=== PATIENT | female | born 1990 | race Hispanic/Latino ===

== ENCOUNTER 2018-03-31 14:13 | Observation (INO) | payer OTHER ==
--- NOTE | 2018-03-31 14:46 | ED PDOC ---
Arrival/HPI - General Chief Complaint: Seizure Time Seen by Provider: 03/31/18 14:15 Historian: Patient - History of Present Illness Narrative History of Present Illness (Text): 03/31/18 14:37 A 28 year old female presents to the emergency department for further evaluation s/p generalized tonic clonic seizure from this morning. Patient reports she was seen 4 days ago in [facility] for a generalized tonic clonic seziure with a full workup that was all negative and a follow up appointment with Dr. Leon however patient had a second generalized tonic clonic seziure lasting 1 minute this morning. Patient states Dr. Leon sent her to the emergency room to be admitted. Patient reports she was not incontinent, was postictal for a few minutes and bit the right side of her tongue, Patient states she is not a smoker or a drinker. Patient has no history of seizures and no family history of seizures. Patient denies any fever, chills, shortness of breath, chest pain, diarrhea, nausea, vomiting, urinary symptoms, back pain, neck pain, headache, dizziness, or any other complaints. Neuro: Dr. Leon Time/Duration: 4-6 hours (earlier today) Symptom Onset: Sudden Symptom Course: Improving Activities at Onset: Light Context: Home Associated Symptoms (Text): 03/31/18 14:52 Second generalized tonic-clonic seizure this morning within the last week. Seen by the neurologist and sent to the emergency department for admission for completion of her workup. She was not started on any anti-seizure medication after her first episode. She was seen at another hospital and had a negative workup including CT scan. There was no injury or trauma. No incontinence. No seizure history. No family history of seizures. Past Medical History - Provider Review Nursing Documentation Reviewed: Yes - Psychiatric Hx Substance Use: No - Anesthesia Hx Anesthesia: No Hx Anesthesia Reactions: No Hx Malignant Hyperthermia: No Family/Social History - Physician Review Nursing Documentation Reviewed: Yes Family/Social History: Unknown Family HX Smoking Status: Never Smoked Hx Alcohol Use: Yes Frequency of alcohol use: Socially Hx Substance Use: No Allergies/Home Meds Allergies/Adverse Reactions: Allergies No Known Allergies Allergy (Verified 03/31/18 14:27) Review of Systems - Physician Review All systems were reviewed & negative as marked: Yes - Review of Systems Constitutional: absent: Fatigue, Fevers, Night Sweats Respiratory: absent: SOB Cardiovascular: absent: Chest Pain Gastrointestinal: absent: Abdominal Pain, Diarrhea, Nausea, Vomiting Genitourinary Female: absent: Urine Output Changes Musculoskeletal: absent: Back Pain, Neck Pain Neurological: Seizure (+generalized tonic clonic seziure this morning). absent: Headache, Dizziness, Focal Weakness, Gait Changes, Speech Changes, Facial Droop, Disequilibrium Physical Exam Temperature: Afebrile Blood Pressure: Normal Pulse: Regular Respiratory Rate: Normal Appearance: Positive for: Well-Appearing, Non-Toxic, Comfortable Pain Distress: None Mental Status: Positive for: Alert and Oriented X 3 - Systems Exam Head: Present: Atraumatic, Normocephalic Pupils: Present: PERRL Extroacular Muscles: Present: EOMI Conjunctiva: Present: Normal Ears: Present: NORMAL TM, Normal Canal. No: Erythema, TM Bulging Mouth: Present: Moist Mucous Membranes Pharnyx: No: ERYTHEMA, EXUDATE, TONSILS ENLARGED Neck: Present: Normal Range of Motion. No: Meningeal Signs, MIDLINE TENDERNESS, Paraspinal Tenderness Respiratory/Chest: Present: Clear to Auscultation, Good Air Exchange. No: Respiratory Distress, Accessory Muscle Use Cardiovascular: Present: Regular Rate and Rhythm, Normal S1, S2. No: Murmurs Abdomen: No: Tenderness, Distention, Peritoneal Signs Back: Present: Normal Inspection Upper Extremity: Present: Normal Inspection. No: Cyanosis, Edema Lower Extremity: Present: Normal Inspection. No: Edema Neurological: Present: GCS=15, CN II-XII Intact, Speech Normal, Motor Func Grossly Intact, Normal Sensory Function, Normal Cerebellar Funct, Gait Normal, Memory Normal Skin: Present: Warm, Dry, Normal Color, Abrasion (+small abrasion to the right side). No: Rashes Psychiatric: Present: Alert, Oriented x 3, Normal Insight, Normal Concentration Medical Decision Making ED Course and Treatment: 03/31/18 14:40 Impression: 28 year old female presenting to the emergency department for further evaluation s/p seizure. Plan: -- EKG -- Labs -- Consult with Dr. Leon -- Consult with Dr. Gruber -- CBC -- Urinalysis -- Reassess and disposition Progress Notes: 03/31/18 14:54 EKG shows normal sinus rhythm rate approximately [address] or T-wave changes. Disposition/Present on Arrival - Present on Arrival Any Indicators Present on Arrival: No History of DVT/PE: No History of Uncontrolled Diabetes: No Urinary Catheter: No History of Decub. Ulcer: No History Surgical Site Infection Following: None - Disposition Have Diagnosis and Disposition been Completed?: Yes Diagnosis: Seizure Disposition: HOSPITALIZED Disposition Time: 15:57 Patient Plan: Observation Patient Problems: Current Active Problems Problem Status Onset Seizure Acute Condition: GOOD
[2018-03-31 15:03] LABS: URINE BILIRUBIN NEGATIVE (NEGATIVE); URINE BLOOD NEGATIVE (NEGATIVE); URINE GLUCOSE (UA) NEGATIVE (NEGATIVE); URINE LEUKOCYTE ESTERASE TRACE Leu/uL (NEGATIVE); URINE PROTEIN NEGATIVE mg/dL (<30 mg/dL); URINE UROBILINOGEN 0.2 E.U./dL (<1 E.U./dL)
[2018-03-31 15:07] LABS: URINE APPEARANCE CLEAR (CLEAR); URINE COLOR YELLOW (YELLOW)
[2018-03-31 15:19] LABS: URINE BACTERIA FEW (NEG); URINE RBC NEGATIVE /hpf (0-2)
[2018-03-31 15:46] LABS: BASO # 0.02 K/mm3 (0.0-2.0); BASO % 0.3 % (0.0-3.0); EOS # 0.1 (0.0-0.7); EOS % 0.8 % (1.5-5.0); GRAN # 5.5 (1.4-6.5); GRAN % 68.6 % (50.0-68.0); HEMOGLOBIN 13.4 g/dL (12.0-16.0); LYMPH # 2.1 (1.2-3.4); LYMPH % 25.9 % (22.0-35.0); MEAN CELL VOLUME 85.3 fl (80.0-105.0); MEAN CORPUSCULAR HEMOGLOBIN 28.1 pg (25.0-35.0); MEAN CORPUSCULAR HGB CONC 32.9 g/dl (31.0-37.0); MONO # 0.4 (0.1-0.6); MONO % 4.4 % (1.0-6.0); RBC 4.77 10^6/uL (3.5-6.1); RED CELL DISTRIBUTION WIDTH 12.8 % (11.5-14.5)
[2018-03-31 16:35] LABS: ALB/GLOB RATIO 1.2 (1.1-1.8); ALBUMIN 4.4 g/dL (3.0-4.8); ALT/SGPT 50 U/L (7-56); AST/SGOT 43 U/L (14-36); BLOOD UREA NITROGEN 12 mg/dL (7-21); CALCIUM 9.5 mg/dL (8.4-10.5); GFR NON-AFRICAN AMERICAN > 60
[2018-03-31 18:04] VITALS: BMI 29.2
--- NOTE | 2018-04-01 08:22 | CARD ---
APPROVED REPORT Date of service: 03/31/2018 EKG Measurement Heart [id number] <Conclusion> Normal sinus rhythm Normal ECG
--- NOTE | 2018-04-01 13:19 | CP.PCM.CON ---
History of Present Illness - History of Present Illness History of Present Illness: Neurology Consultation Note: Mrs. Mason is a 28-year-old woman, who is a patient of Dr. Leon, and was referred to me by Dr. Mai, after having two reported episodes of seizures. She was sent to the hospital for continuous EEG monitoring and work-up for epilepsy. Since she has been in the hospital, she has not had any seizures. She is currently not on any AEDs. Review of Systems - Constitutional Constitutional: absent: As Per HPI, Anorexia, Chills, Daytime Sleepiness, Excessive Sweating, Fatigue, Fever, Frequent Falls, Headache, Increased Appetite, Lethargy, Malaise, Night Sweats, Snoring, Sleep Apnea, Weight Gain, Weight Loss, Weakness, Other - EENT Eyes: absent: As Per HPI, Blind Spots, Blurred Vision, Change in Vision, Decreased Night Vision, Diplopia, Discharge, Dry Eye, Exophthalmos, Floaters, Irritation, Itchy Eyes, Loss of Peripheral Vision, Pain, Photophobia, Requires Corrective Lenses, Sees Flashes, Spots in Vision, Tunnel Vision, Other Visual Disturbances, Loss of Vision, Other Ears: absent: As Per HPI, Decreased Hearing, Ear Discharge, Ear Pain, Tinnitus, Abnormal Hearing, Disequilibrium, Dizziness, Other Nose/Mouth/Throat: absent: As Per HPI, Epistaxis, Nasal Congestion, Nasal Discharge, Nasal Obstruction, Nasal Trauma, Nose Pain, Post Nasal Drip, Sinus Pain, Sinus Pressure, Bleeding Gums, Change in Voice, Dental Pain, Dry Mouth, Dysphagia, Halitosis, Hoarsness, Lip Swelling, Mouth Lesions, Mouth Pain, Odynophagia, Sore Throat, Throat Swelling, Tongue Swelling, Facial Pain, Neck Pain, Neck Mass, Other - Breasts Breasts: absent: As Per HPI, Change in Shape, Mass, Pain, Nipple Discharge, Nip ple Inversion, Skin Changes, Swelling, Other - Cardiovascular Cardiovascular: absent: As Per HPI, Acrocyanosis, Chest Pain, Chest Pain at Rest, Chest Pain with Activity, Claudication, Diaphoresis, Dyspnea, Dyspnea on Exertion, Edema, Irregular Heart Rhythm, Pain Radiating to Arm/Neck/Jaw, Leg Edema, Leg Ulcers, Lightheadedness, Orthopnea, Palpitations, Paroxysmal Nocturnal Dyspnea, Pedal Edema, Radiating Pain, Rapid Heart Rate, Slow Heart Rate, Syncope, Other - Respiratory Respiratory: absent: As Per HPI, Cough, Dyspnea, Hemoptysis, Dyspnea on Exertion, Wheezing, Snoring, Stridor, Pain on Inspiration, Chest Congestion, Excessive Mucous Production, Change in Mucous Color, Pain with Coughing, Other - Gastrointestinal Gastrointestinal: absent: As Per HPI, Abdominal Pain, Belching, Bloating, Change in Bowel Habits, Change in Stool Character, Coffee Ground Emesis, Constipation, Cramping, Diarrhea, Dyspepsia, Dysphagia, Early Satiety, Excessive Flatus, Fecal Incontinence, Heartburn, Hematemesis, Hematochezia, Loose Stools, Melena, Nausea, Odynophagia, Temesmus, Vomiting, Other - Genitourinary Genitourinary: absent: As Per HPI, Change in Urinary Stream, Difficulty Urinating, Dysuria, Flank Pain, Hematuria, Pyuria, Nocturia, Urinary Incontinence, Urinary Frequency, Urinary Hesitance, Urinary Urgency, Voiding Freq/Small Amts, Freq UTI, Hx Renal/Bladder Calculi, Hx /Renal Surgery, Bladder Distension, Other - Musculoskeletal Musculoskeletal: absent: As Per HPI, Abnormal Gait, Arthralgias, Atrophy, Back Pain, Deformity, Joint Swelling, Limited Range of Motion, Loss of Height, Muscle Cramps, Muscle Weakness, Myalgias, Neck Pain, Numbness, Radiating Pain into Limb, Stiffness, Tingling, Other - Integumentary Integumentary: absent: As Per HPI, Acne, Alopecia, Bleeding Lesions, Change in Hair, Change in Nails, Change in Pigmentation, Changing Lesions, Dry Skin, Erythema, Furuncle, Hirsutism, Lesions, New Lesions, Non-Healing Lesions, Photosensitivity, Pruritus, Rash, Skin Pain, Skin Ulcer, Sores, Striae, Swelling, Unusual Bruising, Wounds, Jaundice, Other - Neurological Neurological: As Per HPI - Psychiatric Psychiatric: absent: As Per HPI, Abnormal Sleep Pattern, Anhedonia, Anxiety, Auditory Hallucinations, Behavioral Changes, Change in Appetite, Change in Libid o, Confusion, Depression, Difficulty Concentrating, Hallucinations, Homicidal Ideation, Hopelessness, Irritability, Memory Loss, Mood Swings, Panic Attacks, Paranoia, Suicidal Ideation, Visual Hallucinations, Tactile Hallucinations, Other - Endocrine Endocrine: absent: As Per HPI, Change in Body Appearance, Change in Libido, Cold Intolorance, Deepening of Voice, Excessive Sweating, Fatigue, Flushing, Heat Intolorance, Increase in Ring/Shoe/Hat Size, Palpitations, Polydipsia, Polyphagia, Polyuria, Other - Hematologic/Lymphatic Hematologic: absent: As Per HPI, Easy Bleeding, Easy Bruising, Lymphadenopathy, Other Past Patient History - Past Social History Smoking Status: Never Smoked - CARDIAC Hx Cardiac Disorders: No - PULMONARY Hx Respiratory Disorders: No - NEUROLOGICAL Hx Seizures: Yes (FOUR DAYS AGO & TODAY) - HEENT Hx HEENT Problems: No - RENAL Hx Chronic Kidney Disease: No - ENDOCRINE/METABOLIC Hx Endocrine Disorders: No - HEMATOLOGICAL/ONCOLOGICAL Hx Blood Disorders: No - INTEGUMENTARY Hx Dermatological Problems: No - MUSCULOSKELETAL/RHEUMATOLOGICAL Hx Musculoskeletal Disorders: No - GASTROINTESTINAL Hx Gastrointestinal Disorders: No - GENITOURINARY/GYNECOLOGICAL Hx Genitourinary Disorders: No - PSYCHIATRIC Hx Substance Use: No - SURGICAL HISTORY Hx Surgeries: No - ANESTHESIA Hx Anesthesia: No Hx Anesthesia Reactions: No Hx Malignant Hyperthermia: No Meds Allergies/Adverse Reactions: Allergies Allergy/AdvReac Type Severity Reaction Status Date / Time No Known Allergies Allergy Verified 03/31/18 14:27 Physical Exam - Constitutional Appears: Well - Head Exam Head Exam: ATRAUMATIC, NORMAL INSPECTION, NORMOCEPHALIC - Eye Exam Eye Exam: EOMI, Normal appearance, PERRL - ENT Exam ENT Exam: Mucous Membranes Moist, Normal Exam - Neck Exam Neck exam: Positive for: Normal Inspection - Respiratory Exam Respiratory Exam: Clear to Auscultation Bilateral, NORMAL BREATHING PATTERN - Cardiovascular Exam Cardiovascular Exam: REGULAR RHYTHM, +S1, +S2 - GI/Abdominal Exam GI & Abdominal Exam: Normal Bowel Sounds, Soft. absent: Tenderness - Rectal Exam Rectal Exam: Deferred - Neurological Exam Neurological exam: Alert, CN II-XII Intact, Normal Gait, Oriented x3, Reflexes Normal - Psychiatric Exam Psychiatric exam: Normal Affect, Normal Mood - Skin Skin Exam: Dry, Intact, Normal Color, Warm Results - Vital Signs Recent Vital Signs: Last Vital Signs Temp 98 F 04/01/18 08:06 Pulse 80 04/01/18 08:06 Resp 18 04/01/18 08:06 BP 113/75 04/01/18 08:06 Pulse Ox 98 04/01/18 08:06 - Labs Result Diagrams: 03/31/18 15:30 03/31/18 16:15 Labs: Laboratory Results - last 24 hr 03/31/18 03/31/18 03/31/18 14:37 14:45 15:30 WBC 8.0 RBC 4.77 Hgb 13.4 Hct 40.7 MCV 85.3 MCH 28.1 MCHC 32.9 RDW 12.8 Plt Count 291 MPV 9.0 Gran % 68.6 H Lymph % (Auto) 25.9 Dare % (Auto) 4.4 Eos % (Auto) 0.8 L Baso % (Auto) 0.3 Gran # 5.50 Lymph # (Auto) 2.1 Dare # (Auto) 0.4 Eos # (Auto) 0.1 Baso # (Auto) 0.02 Sodium Potassium Chloride Carbon Dioxide Anion Gap BUN Creatinine Est GFR ( Amer) Est GFR (Non-Af Amer) POC Glucose (mg/dL) 85 Random Glucose Calcium Magnesium Total Bilirubin AST ALT Alkaline Phosphatase Total Protein Albumin Globulin Albumin/Globulin Ratio Urine Color Yellow Urine Appearance Clear Urine pH 6.0 Ur Specific [place] 1.020 Urine Protein Negative Urine Glucose (UA) Negative Urine Ketones Negative Urine Blood Negative Urine Nitrate Negative Urine Bilirubin Negative Urine Urobilinogen 0.2 Ur Leukocyte Esterase Trace H Urine RBC Negative Urine WBC 1 - 3 Ur Epithelial Cells 3 - 4 Urine Bacteria Few Alcohol, Quantitative 03/31/18 03/31/18 16:15 16:15 WBC RBC Hgb Hct MCV MCH MCHC RDW Plt Count MPV Gran % Lymph % (Auto) Dare % (Auto) Eos % (Auto) Baso % (Auto) Gran # Lymph # (Auto) Dare # (Auto) Eos # (Auto) Baso # (Auto) Sodium 140 Potassium 4.3 Chloride 102 Carbon Dioxide 29 Anion Gap 13 BUN 12 Creatinine 0.7 Est GFR ( Amer) > 60 Est GFR (Non-Af Amer) > 60 POC Glucose (mg/dL) Random Glucose 102 Calcium 9.5 Magnesium 2.0 Total Bilirubin 0.7 AST 43 H ALT 50 Alkaline Phosphatase 73 Total Protein 8.1 Albumin 4.4 Globulin 3.7 Albumin/Globulin Ratio 1.2 Urine Color Urine Appearance Urine pH Ur Specific [place] Urine Protein Urine Glucose (UA) Urine Ketones Urine Blood Urine Nitrate Urine Bilirubin Urine Urobilinogen Ur Leukocyte Esterase Urine RBC Urine WBC Ur Epithelial Cells Urine Bacteria Alcohol, Quantitative < 10 Assessment & Plan (1) Seizure Assessment and Plan: The patient will be placed on 24-hour video EEG for further evaluation and an MRI of the brain will be ordered with and without contrast to rule out any underlying pathology. Will discuss with Dr. Leon whether or not we will start and AED and which medication to start based on the patient's history. The patient was also warned not to drive for the next 3 months and that she should not go swimming alone. Thank you for this consultation. Status: Acute
--- NOTE | 2018-04-02 08:52 | PCM.VEEG ---
Video EEG - Procedure Start Date: 04/01/18 Start Time: 12:55 End Date: 04/02/18 End Time: 08:40 Technical Summary: DATA ACQUISITION: This was a multichannel inpatient video-EEG, a minimum of 22 channels were uti lized, performed in accordance with recommendations specified by the [place] [employer] Society (Erika Ferguson et al. ACNS Guideline 1: Minimum Technical Requirements for Performing Clinical Electroencephalography. Journal of Clinical Neurophysiology 2016;33:303-7). The 10-20 electrode placement system was utilized in accordance with guidelines detailed by the International Federation of Clinical Neurophysiology (Dixon Short et al. The Ten-Twenty Electrode System of the International Federation. Recommendations for the Practice of Clinical Neurophysiology: Guidelines of the International Federation of Clinical Physiology 1999; EEG Suppl. 52.). DATA REVIEW / SPIKE DETECTION / DIGITAL ANALYSIS: The entire EEG was scanned and reviewed. Synchronized audio and video recording were reviewed at the time of each alarm and whenever an abnormality or suspicious activity was noted. The entire recording was analyzed utilizing an automated digital spike and seizure analysis program and all automatic spike and seizure detections were manually reviewed. A compressed spectral array was displayed and reviewed alongside the raw EEG tracings. In addition, further analysis of the EEG was performed when abnormalities were identified, including montage changes, dipole source localization, and frequency band identification. Video portion of the study is necessary to correlate abnormal EEG activity with clinical behavior. This study was attended 24 hours per day. - Interpretation Description of the study: Indication; Epilepsy EEG Finding during wakefulness: During active states, the EEG was characterized by 14-25 Hz, 15-30 uV activity bilaterally in fronto-central regions. Resting wakefulness was characterized by a symmetric posterior dominant rhythm of 9-10 Hz, 30-50 uV, which was reactive to eye opening and closing. Drowsiness was associated with slow roving eye movements, slowing and fragmentation of the posterior dominant rhythm, and bilateral 4-7 Hz, 40-70 uV theta activity, sometimes with a shifting predominance. There were no significant asymmetries noted during wakefulness. EEG Finding during sleep: Light sleep was recorded and was characterized by fronto-central slowing at 5-7 H, 50-125 uV, sharp central vertex waves, bilateral sleep spindles, and K- complexes; shifting asymmetries were evident. Deeper stages of sleep were recorded and were characterized an increasing frequency of 1-4 Hz, 50-100 uV delta activity. REM sleep was also recorded and was characterized by mixed frequency (3-15 Hz) low voltage (< 20 uV) activity with clusters of rapid horizontal and vertical eye movements. There were no significant asymmetries noted during sleep. Interictal non-epileptiform abnormalities: none Interictal epileptiform abnormalities: Through the test there were frequent bursts of generalized bifrontal irregular sharp wave complexes at 5 to 6 Hz, seen mainly during drowsiness occasional during wakefulness, lasting up to 2 second, with left sided predominance. Ictal epileptiform abnormalities: None Induction procedures: none - Impression Impression: This is an abnormal video-EEG monitoring study due to the presence of; 1-Normal awake/sleep architecture. 2-No seizures were recorded. 3-Tracy of disorganized bifrontal irregular sharp activity. INTERPRETATION: There are two potential explanation fo the findings; 1-In keeping with a mild non specific diffuse disturbance of cortical activity, in keeping with a diffuse morales matter dysfunction. The findings do not suggest a specific etiology. 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 I would suggest to sleep deprive her, HV and photic the following day, do this once or twice to clarify the findings.
[2018-04-02] MEDS ORDERED: Gadodiamide 287 MG/ML VIAL (15ML) IV ONE (16:30)
[2018-04-02 17:19] VITALS: BP 113/78; PULSE 84; RESP 20; TEMP 98.2; O2SAT 97
--- NOTE | 2018-04-02 17:28 | MRI ---
Date of service: 04/02/2018 PROCEDURE: MRI BRAIN WITH AND WITHOUT CONTRAST HISTORY: Seizure activity COMPARISON: None available. TECHNIQUE: Multiplanar, multisequence MR images of the brain were obtained with and without intravenous contrast enhancement. 15 cc of Omniscan FINDINGS: HEMORRHAGE: None DWI: No evidence of an acute or early subacute infarction. BRAIN PARENCHYMA: No mass,mass effect or edema. No atrophy or chronic microvascular ischemic changes. ENHANCEMENT: No abnormal intracranial enhancement. VENTRICLES: Unremarkable. No hydrocephalus. CRANIUM: Unremarkable. ORBITS: Grossly unremarkable. PARANASAL SINUSES/MASTOIDS: Clear VASCULAR SYSTEM: Skull base flow voids intact. OTHER FINDINGS: None . IMPRESSION: Unremarkable pre and post contrast enhanced MRI of the brain.
--- NOTE | 2018-04-02 18:25 | CP.PCM.PN ---
Subjective - Date & Time of Evaluation Date of Evaluation: 04/02/18 Time of Evaluation: 18:23 - Subjective Subjective: Mrs. Vences was seen and examined today at bedside. She has not had any recent clinical seizures. EEG was reviewed and was consistent with left frontal lobe inter-ictal activity. This was discussed with the patient. MRI of the b rain was normal. Objective - Vital Signs/Intake and Output Vital Signs (last 24 hours): Temp Pulse Resp BP Pulse Ox 98.2 F 84 20 113/78 97 04/02/18 17:18 04/02/18 17:18 04/02/18 17:18 04/02/18 17:18 04/02/18 17:18 Intake and Output: 04/02/18 04/02/18 06:59 18:59 Intake Total 240 Balance 240 - Medications Medications: Current Medications Lorazepam (Ativan) 0.5 mg PO Q6 PRN; Protocol PRN Reason: Anxiety - Labs Labs: 03/31/18 15:30 03/31/18 16:15 - Constitutional Appears: Well - Head Exam Head Exam: ATRAUMATIC, NORMAL INSPECTION, NORMOCEPHALIC - Eye Exam Eye Exam: EOMI, Normal appearance, PERRL - Respiratory Exam Respiratory Exam: Clear to Ausculation Bilateral, NORMAL BREATHING PATTERN - Cardiovascular Exam Cardiovascular Exam: REGULAR RHYTHM, +S1, +S2. absent: Murmur - GI/Abdominal Exam GI & Abdominal Exam: Soft, Normal Bowel Sounds. absent: Tenderness - Neurological Exam Neurological Exam: Alert, Awake, CN II-XII Intact, Normal Gait, Oriented x3, Reflexes Normal Neuro motor strength exam: Left Upper Extremity: 5, Right Upper Extremity: 5, Left Lower Extremity: 5, Right Lower Extremity: 5 - Psychiatric Exam Psychiatric exam: Normal Affect, Normal Mood Assessment and Plan (1) Seizure Assessment & Plan: Will start Keppra 500 mg BID due to EEG abnormalities. The patient will follow up with Dr. Leon as an outpatient. Thank you. Status: Acute
--- NOTE | 2018-04-02 21:37 | PN ---
DATE: 04/01/2018 SUBJECTIVE: This 28-year-old female was examined at her bedside on the afternoon of 04/01/2018. Present for this interview was nurse, Ne Sheth, registered nurse. The patient is awaiting 24-hour EEG application and also completion of a brain MRI. She has had no further seizures while in the [facility] and denied any fever, chills, chest pain or shortness of breath. PHYSICAL EXAMINATION: VITAL SIGNS: Temperature was 98, respirations 18, pulse 80, blood pressure 113/75, pulse ox 98%. Physical exam remains unchanged. Neurological exam is intact. IMPRESSION: A 28-year-old female with new-onset seizure syndrome, awaiting EEG of a 24-hour nature and also brain MRI. She has been seen by Dr. Gianni Jeff, neurologist earlier today. He did inform the patient and it was reemphasized in the presence of nurse, Ne Sheth that she is not to drive for 3 months and is not to swim alone as per his recommendation. The patient is aware that further decision regarding driving and activities will need to be decided by her neurologist, Dr. Leon as an outpatient. Lindsay Gruber MD [email or web address]
--- NOTE | 2018-04-02 23:20 | HP ---
DATE OF EXAM: 03/31/2018 HISTORY AND PRESENT ILLNESS: This 28-year-old female was examined at her bedside in the presence of nurse, Meghan Reed, registered nurse on the evening of Saturday, March 31, 2018. This patient was admitted through the [facility] ER earlier on Saturday March 31, 2018. She had experienced a generalized tonic-clonic seizure at home earlier this morning. She apparently was in the [facility] emergency room on Tuesday afternoon having had a generalized tonic-clonic seizure witnessed by her significant other. She had an appointment Dr. Leon, neurologist and was advised by Dr. Leon to come directly to the [facility] ER after she had her second seizure earlier today. The patient denied incontinence, did have some postictal confusion, did bite the right side of her tongue and denied any loss of bowel continence. She states she has never had history of seizure nor family history of seizure and has a history of medication including control pills which were stopped in the recent past. She is a nonsmoker, social drinker, non IV drug misuser. She is employed as a mechanical service technician and DENIED ANY ALLERGIES TO MEDICATION. REVIEW OF SYSTEMS: Head review as per HPI. Eye review, no change in visual acuity. Ear review, no hearing loss. Throat review, no swallowing difficulty. Neck review, no stiffness. Cardiac review, no chest pain, no palpitation. Pulmonary: No cough, no hemoptysis. GI: No dyspepsia. : No dysuria. Skin: No rash. Vascular: No claudication. Psychological, denied any anxiety or depression. Vascular: No claudication. Neurological: New-onset seizure syndrome. PHYSICAL EXAMINATION: VITAL SIGNS: At the time of this interview, temperature 98.7, respirations 20, pulse 80, blood pressure 106/74, pulse ox 95% room air. HEENT: Head: Normocephalic, atraumatic. Eyes, no icterus. NECK: Supple. HEART: Regular S1, S2. LUNGS: Clear. ABDOMEN: Soft. EXTREMITIES: No edema. SKIN: Without rash. NEUROLOGICAL: Grossly intact. PSYCHOLOGICAL: Alert and oriented x3. VASCULAR: Legs warm to touch. Skin without ulcer. LABORATORY DATA: White count 8000, hemoglobin 13.4, hematocrit 40.7, platelets 291,000. Sodium 140, K 4.3, chloride 102, bicarb 29, BUN 12, creatinine 0.7, random blood sugar 85, calcium 9.5, magnesium 2, bilirubin 0.7, AST 43, ALT 50, alk phos 73. Urinalysis showed no protein, no glucose, no red blood cells, few bacteria. Alcohol, drug screen negative. EKG was reviewed, it showed normal sinus rhythm. IMPRESSION AND PLAN: A 28-year-old female with new-onset seizure syndrome as per discussion with emergency room physician, Dr. Zachery Mai. The patient will be admitted for further evaluation by Neurology with additional studies to include brain MRI and a 24-hour EEG. According to Dr. Mai, the patient did have a recent CT of the head done at the [facility] emergency room which was reportedly negative and reviewed by Dr. Leon. I will allow all future and neurological testings to be ordered under the discretion of her neurologist and all of the above was discussed with the patient at the bedside. She will be placed on seizure precautions, and no antiepileptics have been ordered at this point in time. Lindsay Gruber MD [facility]
--- NOTE | 2018-04-03 00:33 | DS ---
HISTORY OF PRESENT ILLNESS: This 28-year-old female who was examined at her bedside in the presence of nurse Albertina Childress, registered nurse on the afternoon of 04/02/2018. The patient was subsequently seen by neurologist, Gianni Jeff who reviewed the patient's 24-hour EEG, which he reportedly states shows epileptic activity for which he is starting the patient on Keppra 500 mg p.o. b.i.d. He also reviewed the patient's brain MRI, which showed an unremarkable pre and postcontrast enhanced MRI of the brain. He did clear the patient for discharge to home and reiterated that she is not to drive nor swim alone for the next 3 months and is to see Dr. Leon in her office within the next 48 hours. PHYSICAL EXAMINATION: VITAL SIGNS: At the time of discharge, vital signs were temperature 98.2, respirations 20, pulse 84, blood pressure 113/78, and pulse ox 97% on room air. ASSESSMENT AND PLAN: All of these instructions were reiterated by nurse Alanna Reaves, registered nurse. The patient is cleared for discharge with written prescription for Keppra and is aware of need to follow up with Dr. Leon upon discharge. All questions were answered. Lindsay Gruber MD MTD[facility]iquita
== END 2018-04-02 19:20 | disposition home or self-care (01) ==
LOC: ED 14:13 → ERH 15:56 → MERGE 15:56 → ERH 16:06 → 3RSO 17:29
PROVIDERS: ADMIT Internal Medicine; ATTEND Internal Medicine
DX: G40.409 Other generalized epilepsy and epileptic syndromes, not intractable, without status epilepticus (principal); R40.2412 Glasgow coma scale score 13-15, at arrival to emergency department
CPT/HCPCS: 70553; 80053; 80320; 81001; 82948; 83735; 85025; 87086; 93005; 99285; A9579; G0378